=== PATIENT | female | born 1980 | race Caucasian/White ===

== ENCOUNTER 2024-08-26 06:49 | Day surgery (SDC) | payer OTHER ==
[~2024-08-26] VITALS: Ht 160 cm; Wt 61.7 kg
[2024-08-26] MEDS ORDERED: SODIUM CHLORIDE 0.9% 10 ML SYR ONE ×2 (06:53→07:50)
[2024-08-26] MEDS ORDERED: LEVOTHYROXIN88 MC1 PO (07:05)
[2024-08-26] MEDS ORDERED: TRAMADOL HYDRO100 MG PO (07:06)
[2024-08-26] MEDS ORDERED: ATORVASTATIN CA20 MG PO (07:07)
[2024-08-26 07:16] LABS: HCG SERUM/URINE (NEG/POS) NEGATIVE (NEGATIVE)
[2024-08-26] MEDS ORDERED: LIDOCAINE W/ EPINEPHRINE 10 MG/ML INJ ONE (07:47)
[2024-08-26] MEDS ORDERED: LIDOCAINE HCL 1% (10MG/ML) 100 MG/10 ML MDV ONE (07:48)
[2024-08-26] MEDS ORDERED: MIDAZOLAM HCL 2 MG/2 ML VIAL ONE (07:50)
[2024-08-26] MEDS ORDERED: Iopamidol 61% 5 ML SYR IV ONE (08:19)
[2024-08-26 09:14] VITALS: BP 123/70
== END 2024-08-26 08:45 | disposition home or self-care (01) | DRG 93 ==
LOC: ORM 06:49
PROVIDERS: ATTEND Student in an Organized Health Care Education/Training Program
DX: G89.4 Chronic pain syndrome (principal); R10.11 Right upper quadrant pain
CPT/HCPCS: J1100; Q9967